=== PATIENT | female | born 1985 | race Caucasian/White ===

== ENCOUNTER 2022-06-18 10:33 | Emergency (ER) | payer MEDICAID ==
[~2022-06-18] VITALS: Ht 175.3 cm; Wt 112.3 kg
[~2022-06-18 10:33] MED LIST: ONDA4TAB12 PO
[2022-06-18] MEDS ORDERED: normal saline 1000ML IV soln IVB ONE (13:55)
[2022-06-18] MEDS ORDERED: ondansetron/PF 4mg/2ml inj IV ONE (13:55)
[2022-06-18 15:16] LABS: BASOPHILS % (AUTO) 0.4 % (0-1); EOSINOPHILS # (AUTO) 0.2 X10'3 (0-0.9); EOSINOPHILS % (AUTO) 2.2 % (0-6); HEMATOCRIT 43.2 % (35.0-45.0); HEMOGLOBIN 14.4 g/dl (12.0-16.0); LYMPHOCYTES # (AUTO) 2.3 X10'3 (1.1-4.8); LYMPHOCYTES % (AUTO) 25.4 % (21-51); MEAN CORPUSCULAR HEMOGLOBIN 28.8 PG (27.0-31.0); MEAN CORPUSCULAR HGB CONC 33.4 g/dL (33.0-36.5); MEAN CORPUSCULAR VOLUME 86.3 FL (78-98); MEAN PLATELET VOLUME 8.1 FL (7.4-10.4); MONOCYTES # (AUTO) 0.9 X10'3 (0-0.9); MONOCYTES % (AUTO) 9.8 % (2-12); NEUTROPHILS # (AUTO) 5.5 X10'3 (1.8-7.7); NEUTROPHILS % (AUTO) 62.2 % (42-75); PLATELET COUNT 278 X10'3 (140-440); RED CELL DISTRIBUTION WIDTH 13.5 % (11.5-14.5); WHITE BLOOD COUNT 8.9 X10'3 (4.5-11.0)
[2022-06-18 15:29] LABS: ALANINE AMINOTRANSFERASE 48 U/L (12-78); ALBUMIN 3.7 G/DL (3.4-5.0); ALBUMIN/GLOBULIN RATIO 0.9 (1.1-1.5); ALKALINE PHOSPHATASE 88 IU/L (46-116); ANION GAP 8 (8-16); ASPARTATE AMINO TRANSFERASE 26 U/L (10-37); BILIRUBIN,TOTAL 0.3 MG/DL (0.1-1.0); BLOOD UREA NITROGEN 13 MG/DL (7-18); BUN/CREATININE RATIO 17.6 (6.6-38.0); CALCIUM 9.2 MG/DL (8.5-10.1); CHLORIDE 106 MMOL/L (99-107); CREATININE 0.74 MG/DL (0.40-0.90); GLUCOSE 84 MG/DL (70-104); HCG SERUM QL NEGATIVE; POTASSIUM 4.2 MMOL/L (3.5-5.1); SODIUM 140 MMOL/L (135-145); TOTAL CARBON DIOXIDE 26.1 MMOL/L (24-32); TOTAL PROTEIN 7.9 G/DL (6.4-8.2); eGFR 89 ML/MIN
--- NOTE | 2022-06-18 15:54 | NUR ---
To MRI via WC at this time.
--- NOTE | 2022-06-18 16:27 | NUR ---
Patient back to room via gurney.
[2022-06-18 16:38] VITALS: BP 143/88
[2022-06-18] MEDS ORDERED: dexamethasone sod phosphate 10mg/ml inj IV STA (17:14)
[2022-06-18] MEDS ORDERED: ketorolac trometh. 30mg/ml inj. IV ONE (17:15)
[2022-06-18] MEDS ORDERED: magnesium 2GM in 50ml NS 50 ML IV ONE (17:15)
[2022-06-18] MEDS ORDERED: metoclopramide 5 mg/ml inj IV ONE (17:15)
[2022-06-18] MEDS ORDERED: LORazepam 2 mg/ml vial IV ONE (17:15)
== END 2022-06-18 19:37 | disposition home or self-care (01) ==
LOC: ER 10:34
DX: G43.909 Migraine, unspecified, not intractable, without status migrainosus (principal); J45.909 Unspecified asthma, uncomplicated; Z88.2 Allergy status to sulfonamides
CPT/HCPCS: 36415; 70551; 80053; 84703; 85025; 96374; 99285; J1885; J7030

== ENCOUNTER 2023-10-14 09:36 | Emergency (ER) | payer MEDICAID, OTHER ==
[~2023-10-14] VITALS: Ht 167.6 cm; Wt 90.3 kg
[~2023-10-14 09:36] MED LIST changes: +ONDA-243 PO; -ONDA4TAB12 PO
[2023-10-14] MEDS ORDERED: NO HOME MEDS (09:53)
[2023-10-14 09:56] LABS: BASOPHILS % (AUTO) 0.5 % (0-1); EOSINOPHILS # (AUTO) 0.1 X10'3 (0-0.9); EOSINOPHILS % (AUTO) 1.3 % (0-6); HEMATOCRIT 44.5 % (35.0-45.0); LYMPHOCYTES # (AUTO) 2.1 X10'3 (1.1-4.8); LYMPHOCYTES % (AUTO) 24.3 % (21-51); MEAN CORPUSCULAR HEMOGLOBIN 29.9 PG (27.0-31.0); MEAN CORPUSCULAR HGB CONC 33.7 g/dL (33.0-36.5); MEAN CORPUSCULAR VOLUME 88.5 FL (78-98); MEAN PLATELET VOLUME 8.5 FL (7.4-10.4); MONOCYTES # (AUTO) 0.6 X10'3 (0-0.9); MONOCYTES % (AUTO) 7.4 % (2-12); NEUTROPHILS # (AUTO) 5.8 X10'3 (1.8-7.7); NEUTROPHILS % (AUTO) 66.5 % (42-75); PLATELET COUNT 259 X10'3 (140-440); RED BLOOD COUNT 5.03 X10'6 (4.20-5.60); RED CELL DISTRIBUTION WIDTH 12.9 % (11.5-14.5); WHITE BLOOD COUNT 8.8 X10'3 (4.5-11.0)
[2023-10-14 10:19] LABS: ALBUMIN 3.9 G/DL (3.4-5.0); ANION GAP 10 (8-16); BLOOD UREA NITROGEN 12 MG/DL (7-18); BUN/CREATININE RATIO 15.4 (10.0-20.0); CALCIUM 9.1 MG/DL (8.5-10.1); CHLORIDE 103 MMOL/L (99-107); CREATININE 0.78 MG/DL (0.40-0.90); GLUCOSE 90 MG/DL (70-104); POTASSIUM 4.1 MMOL/L (3.5-5.1); PRO BRAIN NATRIURETIC PEPTIDE < 30 PG/ML (0-125); SODIUM 138 MMOL/L (135-145); eCRCL 93 ML/MIN; eGFR 84 ML/MIN
[2023-10-14 10:43] LABS: HCG SERUM QL NEGATIVE
[2023-10-14] MEDS ORDERED: iohexol 350MG/ML 100ml bottle IV ONE (10:45)
[2023-10-14 13:07] VITALS: BP 109/74; PULSE 68; RESP 14; TEMP 98.2; O2SAT 98
== END 2023-10-14 13:09 | disposition home or self-care (01) ==
LOC: ER 09:37
DX: R07.89 Other chest pain (principal); G43.909 Migraine, unspecified, not intractable, without status migrainosus; J45.909 Unspecified asthma, uncomplicated; Z88.2 Allergy status to sulfonamides
CPT/HCPCS: 36415; 71045; 71275; 80048; 83880; 84484; 84703; 85025; 93005; 99285; Q9967

== ENCOUNTER 2024-07-09 19:44 | Emergency (ER) | payer MEDICAID ==
[~2024-07-09] VITALS: Ht 167.6 cm; Wt 96.8 kg
[~2024-07-09 19:44] MED LIST changes: +NO HOME MEDS; -ONDA-243 PO
[2024-07-09 19:49] VITALS: BP 138/83; PULSE 94; RESP 18; TEMP 98.9; O2SAT 99
[2024-07-09 20:18] LABS: BASOPHILS % (AUTO) 0.2 % (0-1); EOSINOPHILS # (AUTO) 0.1 X10'3 (0-0.9); EOSINOPHILS % (AUTO) 0.7 % (0-6); HEMATOCRIT 35.7 % (35.0-45.0); HEMOGLOBIN 12.2 g/dl (12.0-16.0); MEAN CORPUSCULAR HEMOGLOBIN 30.5 PG (27.0-31.0); MEAN CORPUSCULAR HGB CONC 34.3 g/dL (33.0-36.5); MEAN CORPUSCULAR VOLUME 88.9 FL (78-98); MEAN PLATELET VOLUME 8.3 FL (7.4-10.4); MONOCYTES # (AUTO) 0.8 X10'3 (0-0.9); MONOCYTES % (AUTO) 7.1 % (2-12); NEUTROPHILS # (AUTO) 7.8 X10'3 (1.8-7.7); PLATELET COUNT 209 X10'3 (140-440); RED BLOOD COUNT 4.01 X10'6 (4.20-5.60); RED CELL DISTRIBUTION WIDTH 13.7 % (11.5-14.5); WHITE BLOOD COUNT 10.7 X10'3 (4.5-11.0)
[2024-07-09 20:31] LABS: ALANINE AMINOTRANSFERASE 21 U/L (12-78); ALBUMIN 2.8 G/DL (3.4-5.0); ALBUMIN/GLOBULIN RATIO 0.6 (1.1-1.5); ALKALINE PHOSPHATASE 53 IU/L (46-116); ANION GAP 10 (8-16); ASPARTATE AMINO TRANSFERASE 12 U/L (10-37); BILIRUBIN,TOTAL 0.2 MG/DL (0.1-1.0); BLOOD UREA NITROGEN 7 MG/DL (7-18); BUN/CREATININE RATIO 14.3 (10.0-20.0); CALCIUM 8.8 MG/DL (8.5-10.1); CHLORIDE 104 MMOL/L (99-107); CREATININE 0.49 MG/DL (0.40-0.90); GLUCOSE 94 MG/DL (70-104); LIPASE 29 U/L (16-77); POTASSIUM 3.7 MMOL/L (3.5-5.1); SODIUM 136 MMOL/L (135-145); TOTAL CARBON DIOXIDE 22.3 MMOL/L (24-32); TOTAL PROTEIN 7.2 G/DL (6.4-8.2); eCRCL 147 ML/MIN; eGFR > 90 ML/MIN
== END 2024-07-09 23:11 | disposition left against medical advice (07) ==
LOC: ER 19:44
DX: O99.612 Diseases of the digestive system complicating pregnancy, second trimester (principal); K92.9 Disease of digestive system, unspecified; R11.0 Nausea; Z53.21 Procedure and treatment not carried out due to patient leaving prior to being seen by health care provider; Z88.2 Allergy status to sulfonamides; Z88.8 Allergy status to other drugs, medicaments and biological substances; Z3A.20 20 weeks gestation of pregnancy
CPT/HCPCS: 36415; 80053; 83690; 85025; 86900; 86901

== ENCOUNTER 2024-07-10 09:44 | Emergency (ER) | payer MEDICAID ==
[~2024-07-10] VITALS: Ht 167.6 cm; Wt 100.8 kg
[2024-07-10 09:46] VITALS: BP 125/60; O2SAT 98
[2024-07-10 11:46] VITALS: PULSE 89; RESP 16; TEMP 98
[2024-07-13 13:12] LABS: CHLAMYDIA TRACHOMATIS, NAA Negative (Negative)
== END 2024-07-10 11:50 | disposition home or self-care (01) ==
LOC: ER 09:45
DX: O99.612 Diseases of the digestive system complicating pregnancy, second trimester (principal); J45.909 Unspecified asthma, uncomplicated; G43.909 Migraine, unspecified, not intractable, without status migrainosus; Z3A.21 21 weeks gestation of pregnancy; Z88.2 Allergy status to sulfonamides
CPT/HCPCS: 36415; 76815; 87070; 87491; 99284; A5200